=== PATIENT | female | born 1940 | race Asian ===

== ENCOUNTER 2025-07-10 14:23 | Outpatient (AMB) | payer OTHER, SELFPAY ==
--- NOTE | 2025-07-10 14:36 | A.OFFVIS_ITS ---
Intake Visit Reasons: Callus and foot care Intake Note: Cande is an 85 year old female who presents today as a new patient for an evaluation of her callus and foot care. the callus is located in the plantar aspect of her foot. She has bilateral bunions and hammertoes on the right foot. Allergies No Known Allergies Allergy (Mild, Verified 07/10/25 14:39) HPI Comments Details: The patient is an 85 year old female with a past medical history as seen below presenting for management of calluses on her feet. Patient was accompanied by her daughter who assisted in providing her history. She has a history of recurrent calluses and previously received regular debridement every couple of months while living in [place]. The patient reports the calluses cause pain when walking. 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 She previously tried using toe separators from [facility] but found them to be very uncomfortable and ineffective. She denies any recent injuries to her feet. For home care, she applies a thick cream to her feet. Her typical footwear consists of sneakers when outside, and she walks around in socks while in the house. She denies any other pedal concerns. She denies any recent pedal injuries. 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 - Integumentary/Extremities: Reports having painful calluses on her feet. Reports thickened toenails x10. All systems reviewed & are unremarkable except as noted in HPI and below Physical Exam Extrem Other: Bilateral lower extremity focused physical exam: Derm: 3 Hyperkeratotic lesions noted to the plantar aspect of the left foot. Toenails noted to be thickened and dystrophic but within normal length. No open lesions abrasions or wounds noted. No ecchymosis, erythema, or discoloration noted. No clinical signs of infection noted. No interdigital maceration noted. Vasc: DP/PT pulses palpable. Capillary refill time less than 3 seconds. Temperature gradient warm to warm. Varicosities noted. No edema noted. Neuro: Protective sensation is grossly intact to light touch. MSK: Discomfort noted to the plantar aspect of the left foot due to hyperkeratotic lesions. Severe bunions, hammertoes with crossover toes noted. Slow gait noted. No crepitus or fluctuance noted. Office Procedures AMB Debridement/Avulsion Podia Details: Debrided 3 hyperkeratotic lesions to the left foot using a sterile 15. Blade without incidents. [id number] of Callus (2-4) Procedure code (CPT) selection complete AMB Podiatry Dressing Additional procedure code (CPT) needed (18310 - debridement of 3 calluses) Assessment & Plan Assessment & Plan (1) Other specified epidermal thickening: Code(s): L85.8 - Other specified epidermal thickening Category: Medical (2) Intractable plantar keratosis: Code(s): L84 - Corns and callosities Category: Medical (3) Left foot pain: Code(s): M79.672 - Pain in left foot Category: Medical (4) Bilateral bunions: Code(s): M21.611 - Bunion of right foot; M21.612 - Bunion of left foot Category: Medical (5) Hammertoes of both feet: Code(s): M20.41 - Other hammer toe(s) (acquired), right foot; M20.42 - Other hammer toe(s) (acquired), left foot Category: Medical Plan Patient was informed and verbally consented to the use of an ambient scribe for clinic note documentation during this visit. I explained to the patient and her daughter that calluses are often a recurring issue that requires shaving down every couple of months. I discussed how her toe deformities, likely from a bunion, hammertoes, and her rheumatoid arthritis, can cause the toes to cross over and lead to pressure from shoes. I advised continuing the use of a thick cream, as this helps to slow down how fast the callus returns. I recommended she wear sandals or slippers with a cushioned sole in the house, rather than just socks, to prevent the callus from coming back as quickly and to provide support. Recommend routine callus debridement and routine nail care. - Debrided 3 calluses to the left foot. - The patient was advised to continue using a thick cream on her feet to help slow the recurrence of calluses. - The patient was counseled on the importance of wearing supportive footwear, such as sandals or slippers with a sole, while at home to provide cushioning and reduce callus formation. - Advised patient to avoid barefoot walking. - Recommended routine foot and nail care. RTC in 2 months. Coding Level of Care Code New Pt Level 3 (25848) Diagnoses Other specified epidermal thickening L85.8 Intractable plantar keratosis L84 Left foot pain M79.672 Bilateral bunions M21.611; M21.612 Hammertoes of both feet M20.41; M20.42 CPT Codes Skin Debridement - CPT: 16921-[place] of Callus (2-4) ([id number]) Podiatry Dressing - All charges added?: Additional procedure code (CPT) needed ([id number]) Time Spent (min) 37 Comment 7 mins for procedure
== END 2025-07-10 16:01 | disposition home or self-care (01) ==
LOC: HO.HPODS 14:24
PROVIDERS: Visit Provider Student in an Organized Health Care Education/Training Program
DX: L85.8 Other specified epidermal thickening (principal); L84 Corns and callosities; M79.672 Pain in left foot; M21.611 Bunion of right foot; M21.612 Bunion of left foot; M20.41 Other hammer toe(s) (acquired), right foot; M20.42 Other hammer toe(s) (acquired), left foot
CPT/HCPCS: 11056; 99203

== ENCOUNTER → 2025-07-10 14:23 | Outpatient (BNVA) | payer OTHER, SELFPAY | PROVIDERS: Visit Provider Student in an Organized Health Care Education/Training Program | DX: L85.8 Other specified epidermal thickening (principal); L84 Corns and callosities; M79.672 Pain in left foot; M21.611 Bunion of right foot; M21.612 Bunion of left foot; M20.41 Other hammer toe(s) (acquired), right foot; M20.42 Other hammer toe(s) (acquired), left foot; M06.9 Rheumatoid arthritis, unspecified | CPT/HCPCS: 11056; 99202 ==